=== PATIENT | female | born 1995 | race Caucasian/White ===

== ENCOUNTER 2021-06-20 16:10 | Observation (INO) | payer OTHER, SELFPAY ==
--- NOTE | 2021-06-20 14:05 | OBADM ---
This patient, Taylor Li, admitted to the OB room OB Post 117 for observation. Patient/family oriented to hospital policies and general routines including ID bracelet, bed and alarms, visiting hours, pain management, procedures, bathroom and other care routines, personal items, smoking policy, room service/diet, and visiting hours. Patient/Family are encouraged to report perceived risks to care and to ask questions if they do not understand what they are told or what they should do.
[2021-06-20 14:30] VITALS: BP 126/73; PULSE 74; BMI 29.4
[2021-06-20 14:45] VITALS: BP 124/82; PULSE 82
[2021-06-20 15:00] VITALS: BP 121/70; PULSE 75
[2021-06-20 15:15] VITALS: BP 112/70; PULSE 76
[2021-06-20 15:30] VITALS: BP 126/75; PULSE 87
[2021-06-20 15:45] VITALS: BP 120/70; PULSE 77
[2021-06-20] MEDS: TERBUTALINE SULFATE 1 MG/ML VIAL 0.25 MG SUB-Q (17:13)
[2021-06-20 17:41] LABS: Add Urine Microscopic? YES; Appearance Urine Clear (Clear); Bilirubin Urine Negative (Negative); Blood Urine Negative (Negative); Color Urine Colorless (Yellow); Glucose Urine UA Negative (Negative); Ketones Urine Trace mg/dL (Negative); Leukocyte Esterase Ur Negative LEU/UL (NEGATIVE); Nitrate Urine Negative (Negative); Protein Urine Negative (Negative); Squamous Epithelial Cell Urine Rare /hpf (Few); Urobilinogen Urine Negative mg/dL (<2.0); WBC Urine 0-3 /hpf (0-3)
[2021-06-20 18:22] LABS: Specific Grav Ur 1.003 (1.001-1.035)
--- NOTE | 2021-07-10 22:56 | PM.OBTRLD ---
OB - Triage/Final Diagnosis Visit Information Comments/Additional reasons for admission: I have assessed the risk for this patient, Taylor Li, and determined that she would benefit from observation care. Evaluation Laboratory results: Laboratory Tests 06/20/21 17:05 Urine Color Colorless Urine Appearance Clear Urine pH 6.0 Ur Specific [place] 1.003 Urine Protein Negative Urine Glucose (UA) Negative Urine Ketones Trace Ur Blood (Man) Negative Urine Nitrate Negative Urine Bilirubin Negative Urine Urobilinogen Negative Ur Leukocyte Esterase Negative Urine WBC 0-3 Ur Squamous Epith Cells Rare Final Diagnosis (1) Threatened labor, antepartum: Code(s): O47.00 - False labor before 37 completed weeks of gestation, unspecified trimester Status: Acute
== END 2021-06-20 18:45 | disposition home or self-care (01) ==
PROVIDERS: Admitting Provider Obstetrics & Gynecology; PCP Nurse Practitioner; Visit Provider Obstetrics & Gynecology
DX: O47.1 False labor at or after 37 completed weeks of gestation (principal); Z3A.34 34 weeks gestation of pregnancy
CPT/HCPCS: 81001; 87077; 87086; 87088; 96372; G0378; G0379; J3105

== ENCOUNTER 2021-06-27 07:27 | Inpatient (IN) | payer OTHER, SELFPAY ==
[2021-06-27] VITALS (55 sets, daily range): BP systolic 82–134; BP diastolic 48–95; PULSE 28–118; RESP 14–20; TEMP 36.8–37.7; O2SAT 95–100
--- NOTE | 2021-06-27 07:27 | LDADM ---
This patient, Taylor Li, was admitted to Labor/Delivery/Recovery 103 on 06/27/21 at 07:27. Plans for labor, pain management and were discussed with patient. Patient/family oriented to hospital policies and general routines including ID bracelet, bed and alarms, visiting hours, pain management, procedures, bathroom and other care routines, personal items, smoking policy, room service/diet and guest tray routines, infant security routines, and visiting hours. Patient/Family are encouraged to report perceived risks to care and to ask questions if they do not understand what they are told or what they should do. See OBIX for further documentation.
[2021-06-27] MEDS: LACTATED RINGERS 1,000 ML 125 ML IV CONT ×3 (09:21→19:25)
[2021-06-27] MEDS: OXYTOCIN 30 UNITS/NS 500 ML 30 UNITS/500 ML BAG 6 UNITS IV CONT (09:21)
[2021-06-27] MEDS: AMPICILLIN 2 GM/NS 100 ML 2 GM/100 ML BAG IVPB (09:21)
[2021-06-27 09:33] LABS: Basophils Percent Auto 0.3 % (0.2-1.2); Eosinophils Absolute Auto 0.1 K/mm3 (0-0.3); Eosinophils Percent Auto 0.6 % (0-4.4); Hematocrit 42.4 % (37.0-47.0); Hemoglobin 14.3 g/dL (12.0-15.0); Immature Granulocyte Absolute 0.09 K/mm3 (0.00-0.031); Lymphocytes Absolute Auto 1.93 K/mm3 (0.9-3.2); Lymphocytes Percent Auto 21.7 % (18.3-44.2); Mean Corpuscular HGB Conc 33.7 g/dl (32-36); Mean Corpuscular Hemoglobin 31.1 pg (26-34); Mean Corpuscular Volume 92.2 fl (80-100); Mean Platelet Volume 11.5 fl (7.4-10.4); Monocytes Absolute Auto 0.5 K/mm3 (0.1-0.6); Monocytes Percent Auto 5.9 % (2.6-8.5); Neutrophils Absolute Auto 6.3 K/mm3 (1.3-6.7); Neutrophils Percent Auto 70.5 % (45.5-73.1); Platelet Count Result 190 k/mm3 (150-375); Red Cell Distribution Width 13.1 % (11.5-14.5); White Blood Count 8.9 K/mm3 (4.5-10.0)
[2021-06-27] MEDS: BETAMETHASONE SOD PHOS/ACETATE 30 MG/5 ML VIAL 12 MG IM (09:52)
[2021-06-27] MEDS: AMPICILLIN 1 GM/NS 50 ML 1 GM/50 ML BAG IVPB ×2 (13:31→17:36)
--- NOTE | 2021-06-27 16:08 | PM.IMHP ---
H&P: HPI History of Present Illness Date/Time: 06/27/21 16:08 She is 35 weeks by LMP 10/23/20 with an EDC 07/30/21 consistent with 10 week ultrasound. Patient presented to L and D with complaints of leaking of fluid. She states she woke up this morning with urge to urinate and then had a gush clear fluid 0600. No fever or chills. She was confirmed positive ROM plus. PNC significant for history of polyhydramnios, the AF was within normal at her last ultrasound.+ GBS in urine. She did have cervical dilation 2 last week no change while being monitored on L and D. Chief Complaint: Leaking of fluid Review of Systems Review of Systems: All systems reviewed & are unremarkable except as noted in HPI and below Constitutional: Constitutional: Reports no additional constitutional complaints and Denies headache(s) Eyes: Eyes: Denies spots in vision ENT: Reports system reviewed and no additional complaints, except as documented and Denies headache(s) Cardiovascular: Cardiovascular: Denies chest pain and Denies dyspnea Respiratory: Respiratory: Denies dyspnea Gastrointestinal: Gastrointestinal: Reports no additional gastrointestinal complaints Genitourinary: Genitourinary: Reports amenorrhea Musculoskeletal: Musculoskeletal: Reports no additional musculoskeletal complaints Integumentary/Breasts: Skin/Breast: Denies breast mass and Denies rash Neurologic: Denies headache(s) Psychiatric: Psychiatric: Reports no additional psychiatric complaints [facility] Past Medical History Medical History Asthma Seasonal allergies Family History Family History Mother Diabetes mellitus Sibling Asthma Grandparent Hypertension Heart disease Cerebrovascular accident Social History Social History Smoking status: Never smoker Second hand tobacco smoke exposure: No Alcohol intake: never Substance use: never Spiritual care concerns: No Meds Home Medications and Allergies Home Medications Medication Instructions Recorded Confirmed Type docosahexaenoic acid 200 mg capsule mg PO 12/16/20 06/07/21 History amoxicillin 250 mg capsule 250 mg PO Q8H #21 cap 06/23/21 06/27/21 Rx PNV cmb#95-ferrous fumarate-FA 1 tablet PO DAILY 06/27/21 06/27/21 History [] Allergies Allergy/AdvReac Type Severity Reaction Status Date / Time No Known Allergies Allergy Verified 06/20/21 13:39 Vital Signs Vital Signs - 24 hr 06/27/21 09:00 06/27/21 09:30 06/27/21 10:01 Temperature 99.1 F Pulse Rate 96 95 Blood Pressure 134/88 134/89 06/27/21 10:32 06/27/21 10:49 06/27/21 11:01 Temperature 98.8 F Pulse Rate 112 H 82 Blood Pressure 93/60 L 115/85 06/27/21 12:00 06/27/21 12:30 06/27/21 13:01 Temperature Pulse Rate 79 91 78 Blood Pressure 119/73 115/58 L 102/67 06/27/21 13:31 06/27/21 14:00 06/27/21 14:30 Temperature Pulse Rate 85 74 84 Blood Pressure 92/69 L 112/78 131/86 06/27/21 15:01 06/27/21 15:31 06/27/21 16:01 Temperature Pulse Rate 84 99 92 Blood Pressure 105/89 95/62 L 124/64 Exam Const: General: no acute distress Eyes: General: appearance normal, both eyes and all related structures Resp: Effort & Inspection: normal respiratory effort Cardio: Rate: regular rate GI: Other: Gravid no fundal tenderness no right upper quadrant pain Skin: General skin exam: no rashes or lesions noted Neuro: Cognition (Neuro): normal cognition Extrem: General: normal to inspection Psych: Mental Status: mental status grossly normal H&P: Results Labs Labs: Short CBC 06/27/21 Range/Units 08:41 WBC 8.9 (4.5-10.0) K/mm3 Hgb 14.3 (12.0-15.0) g/dL Hct 42.4 (37.0-47.0) % Plt Count 190 (150-375) k/mm3 Assessment and Plan Assessment and plan (1) premature rupture of membranes:
--- NOTE | 2021-06-27 17:02 | P.PNAN_ITS ---
Anes - Eval Pre Procedure Procedure: labor epidural Date/Time: 06/27/21 17:02 Surgeon: norman Pre Op Diagnosis: Leaking Patient Data Age: 25 Gender: F Height: Weight: Last Vital Signs Temp 37.3 C 06/27/21 15:30 Pulse 89 06/27/21 16:31 BP 94/71 L 06/27/21 16:31 Allergies Allergy/AdvReac Type Severity Reaction Status Date / Time No Known Allergies Allergy Verified 06/20/21 13:39 Home Medications Medication Instructions Recorded Confirmed Type docosahexaenoic acid 200 mg capsule mg PO 12/16/20 06/07/21 History amoxicillin 250 mg capsule 250 mg PO Q8H #21 cap 06/23/21 06/27/21 Rx PNV cmb#95-ferrous fumarate-FA 1 tablet PO DAILY 06/27/21 06/27/21 History [] Laboratory Tests 06/27/21 06/27/21 06/27/21 08:41 08:41 08:41 WBC 8.9 K/mm3 K/mm3 (4.5-10.0) RBC 4.60 M/mm3 M/mm3 (4.2-5.4) Hgb 14.3 g/dL g/dL (12.0-15.0) Hct 42.4 % % (37.0-47.0) MCV 92.2 fl fl (80-100) MCH 31.1 pg pg (26-34) MCHC 33.7 g/dl g/dl (32-36) RDW 13.1 % % (11.5-14.5) Plt Count 190 k/mm3 k/mm3 (150-375) MPV 11.5 fl H fl (7.4-10.4) Immature Gran % (Auto) 1.0 % H % (0-0.5) Neut % (Auto) 70.5 % % (45.5-73.1) Lymph % (Auto) 21.7 % % (18.3-44.2) [place] % (Auto) 5.9 % % (2.6-8.5) Eos % (Auto) 0.6 % % (0-4.4) Baso % (Auto) 0.3 % % (0.2-1.2) Lymph # (Auto) 1.93 K/mm3 K/mm3 (0.9-3.2) [place] # (Auto) 0.5 K/mm3 K/mm3 (0.1-0.6) Eos # (Auto) 0.1 K/mm3 K/mm3 (0-0.3) Baso # (Auto) 0.0 K/mm3 K/mm3 (0.0-0.1) Abs Immat Gran (auto) 0.09 K/mm3 H K/mm3 (0.00-0.031) Absolute Neuts (auto) 6.3 K/mm3 K/mm3 (1.3-6.7) Absolute Nucleated RBC 0.0 K/mm3 K/mm3 (0.0-0.012) Nucleated RBC % 0.0 % % (0.0-0.2) RPR Pending Blood Type O Positive Antibody Screen Negative Patient hx anesthesia problems: none Family hx anesthesia problems: none Results Review: All pre-operative results and documents have been reviewed as part of the pre-operative evaluation. [facility] Past Medical History Medical History Asthma Seasonal allergies Family History Family History Mother Diabetes mellitus Sibling Asthma Grandparent Hypertension Heart disease Cerebrovascular accident Social History Social History Smoking status: Never smoker Second hand tobacco smoke exposure: No Alcohol intake: never Substance use: never Spiritual care concerns: No Exam Day of Procedure 06/27/21 17
--- NOTE | 2021-06-27 17:37 | P.PNOB_ITS ---
OB - PN: Subj Subjective Date/time seen: 06/27/21 17:37 FHT 130, Cat 2, intermittent episode of late decelerations, AROM forebag, large amount clear fluid and episode of tachysystole and late decel, improved with position change, pit D/C and O2. Attempted to place IUPC but it would not advance, heam slightly asynclitic, cx 3/80/-2, Continue to monitor. OB - PN: Obj Data Labs CBC & Chem 7: 06/27/21 08:41 Labs: Laboratory Results - last 24 hr 06/27/21 06/27/21 08:41 08:41 WBC 8.9 RBC 4.60 Hgb 14.3 Hct 42.4 MCV 92.2 MCH 31.1 MCHC 33.7 RDW 13.1 Plt Count 190 MPV 11.5 H Immature Gran % (Auto) 1.0 H Neut % (Auto) 70.5 Lymph % (Auto) 21.7 [place] % (Auto) 5.9 Eos % (Auto) 0.6 Baso % (Auto) 0.3 Lymph # (Auto) 1.93 [place] # (Auto) 0.5 Eos # (Auto) 0.1 Baso # (Auto) 0.0 Abs Immat Gran (auto) 0.09 H Absolute Neuts (auto) 6.3 Absolute Nucleated RBC 0.0 Nucleated RBC % 0.0 Blood Type O Positive Antibody Screen Negative OB - PN A/P Time Spent With Patient Time: Total time spent is greater than 50% in coordination of care (as alice carter) at patient's floor/unit and/or counseling patient:
[2021-06-27] MEDS: TERBUTALINE SULFATE 1 MG/ML VIAL (20:44)
--- NOTE | 2021-06-27 21:20 | WPDANESEPP ---
Anes - Eval Pre Procedure Procedure: primary c/s Date/Time: 06/27/21 21:20 Surgeon: norman Pre Op Diagnosis: Leaking Patient Data Age: 25 Gender: F Height: Weight: Last Vital Signs Temp 37.3 C 06/27/21 15:30 Pulse 118 H 06/27/21 20:41 BP 129/62 06/27/21 20:41 Pulse Ox 100 06/27/21 20:42 Allergies Allergy/AdvReac Type Severity Reaction Status Date / Time No Known Allergies Allergy Verified 06/20/21 13:39 Home Medications Medication Instructions Recorded Confirmed Type docosahexaenoic acid 200 mg capsule mg PO 12/16/20 06/07/21 History amoxicillin 250 mg capsule 250 mg PO Q8H #21 cap 06/23/21 06/27/21 Rx PNV cmb#95-ferrous fumarate-FA 1 tablet PO DAILY 06/27/21 06/27/21 History [] Laboratory Tests 06/27/21 06/27/21 06/27/21 08:41 08:41 08:41 WBC 8.9 K/mm3 K/mm3 (4.5-10.0) RBC 4.60 M/mm3 M/mm3 (4.2-5.4) Hgb 14.3 g/dL g/dL (12.0-15.0) Hct 42.4 % % (37.0-47.0) MCV 92.2 fl fl (80-100) MCH 31.1 pg pg (26-34) MCHC 33.7 g/dl g/dl (32-36) RDW 13.1 % % (11.5-14.5) Plt Count 190 k/mm3 k/mm3 (150-375) MPV 11.5 fl H fl (7.4-10.4) Immature Gran % (Auto) 1.0 % H % (0-0.5) Neut % (Auto) 70.5 % % (45.5-73.1) Lymph % (Auto) 21.7 % % (18.3-44.2) [place] % (Auto) 5.9 % % (2.6-8.5) Eos % (Auto) 0.6 % % (0-4.4) Baso % (Auto) 0.3 % % (0.2-1.2) Lymph # (Auto) 1.93 K/mm3 K/mm3 (0.9-3.2) [place] # (Auto) 0.5 K/mm3 K/mm3 (0.1-0.6) Eos # (Auto) 0.1 K/mm3 K/mm3 (0-0.3) Baso # (Auto) 0.0 K/mm3 K/mm3 (0.0-0.1) Abs Immat Gran (auto) 0.09 K/mm3 H K/mm3 (0.00-0.031) Absolute Neuts (auto) 6.3 K/mm3 K/mm3 (1.3-6.7) Absolute Nucleated RBC 0.0 K/mm3 K/mm3 (0.0-0.012) Nucleated RBC % 0.0 % % (0.0-0.2) RPR Pending Blood Type O Positive Antibody Screen Negative Patient hx anesthesia problems: none Family hx anesthesia problems: none Results Review: All pre-operative results and documents have been reviewed as part of the pre-operative evaluation. [facility] Past Medical History Medical History Asthma Seasonal allergies Family History Family History Mother Diabetes mellitus Sibling Asthma Grandparent Hypertension Heart disease Cerebrovascular accident Social History Social History Smoking status: Never smoker Second hand tobacco smoke exposure: No Alcohol intake: never Substance use: never Spiritual care concerns: No Exam Day of Procedure 06/27/21 21:20
--- NOTE | 2021-06-27 21:39 | PM.OP ---
Procedure Note - Brief Procedure Note - Brief Date of procedure: 06/27/21 Pre-op diagnosis: Leaking Post-op diagnosis: same Procedure performed: Primary low transverse ceserean section Anesthesia: epidural Surgeon: Luis Carlos Jacques MD Estimated blood loss (mL): 480 Drains: No Packing: No Pathology: yes (Placenta and cord) Complications: No immediate complications Condition: stable Disposition: floor
--- NOTE | 2021-06-27 23:37 | W.PM.PROC2 ---
Procedure Note - Detailed Date of Procedure 06/27/21 Pre-op Diagnosis Nonreassuring heart tracing premature rupture of membranes. Post-op Diagnosis same Procedure Performed Primary low transverse ceserean section Surgeon Luis Carlos Jacques MD Anesthesia epidural Indications Patient is a 25 y/o G1 at 35 1 weeks admitted on 06/27 for PPROM. She was started on IV ampicillin for prematurity and recent urine culture with GBS. She was also given rescue dose betamethasone and labor augmented with Pitocin. tracing during labor she had intermittent episode of late decels which were relieved with position change. Her Pitocin was stopped after having late repetitive decels. The tracing did improve. She did request epidural. After epidural placed her blood pressures were low and she was having late decelerationsd and a bradycardia episode. Cervix at that time was 4-5 cm. At that time due to the Cat 2 tracing remote from delivery she was recommended for ceserean section. She was informed of indication, and risk benefit of procedure and risk of persisting with labor and agreed to primary ceserean section. heart tones were 120-130 when she got to the OR. Findings Male infant, OP position, clear fluid. Normal uterus, fallopian tubes and ovaries. Description of Procedure After informed consent, risks and benefits of the procedure was discussed with the patient. The patient was taken to the operating room where she was placed in the dorsal lithotomy position with leftward tilt. The epidural anesthesia was dosed and found to be adequate, she was then prepped and draped in the usual sterile fashion. A Pfannenstiel skin incision was made with a scalpel and carried through to the underlying layer of fascia. The fascia was then nicked in the midline, extending bilaterally. The fascia was dissected off the rectus muscles bluntly and sharply, superiorly and inferiorly. The rectus muscles were in the midline, and peritoneum was identified and entered sharply.. The pelvic organs were visualized. The bladder blade was then inserted. The vesicouterine peritoneum was identified and entered sharply with Metzenbaum scissors and extended bilaterally and then the bladder flap was created digitally. The low transverse uterine incision was then made with the scalpel and extended with bilateral index fingers in a crescent-shaped fashion. The head was delivered and the rest of the infant was delivered. The cord was doubly clamped and cut. The was nonvigorous and was then handed off to the awaiting pediatric staff. The placenta was then delivered manually. The uterine cavity was sponge curretted. The uterus was then exteriorized. The uterine incision was then closed with 0 vicryl in a running locked fashion. Hemostasis noted. A second layer of 0 vicryl was used in an imbricating fashion. The uterus was then returned to the abdomen. The posterior cul de sac and bllateral gutters were cleared off all clots and debris. The uterine incision was noted to be hemostatic. Interceed placed on uterine incision and vertically on front of uterus. The peritoneum was approximated with 3.0 in a running fashion. The muscle bellies were inspected and noted to be hemostatic. The subfascial layer was noted to be hemostatic, and the fascia was closed with 0 Vicryl in a running fashion. The subcutaneous layer was then closed with 3-0 Vicryl in a subcutaneous fashion. The skin was closed with dissolveable fantasma. Skin dermabond applied at incision. All instruments, needle, and lap counts were correct x3. The patient was taken to the recovery room in stable condition. Estimated Blood Loss -485.0 Drains No Pathology yes (placenta and cord) Complications No immediate complications Condition stable Disposition floor
[2021-06-28 00:45] VITALS: BP 128/58; PULSE 86; RESP 18; TEMP 36.5; O2SAT 97
[2021-06-28] MEDS: DEXTROSE 5%/0.45% SOD CHL 1,000 ML 125 ML IV CONT (01:33)
[2021-06-28] MEDS: KETOROLAC 30 MG/ML VIAL (*BKC) IV PUSH (01:34)
[2021-06-28 04:30] VITALS: BP 93/65; PULSE 98; RESP 18; TEMP 36.1; O2SAT 96
[2021-06-28 05:44] LABS: Basophils Percent Auto 0.2 % (0.2-1.2); Hematocrit 35.8 % (37.0-47.0); Hemoglobin 11.8 g/dL (12.0-15.0); Immature Granulocyte Absolute 0.21 K/mm3 (0.00-0.031); Lymphocytes Absolute Auto 1.27 K/mm3 (0.9-3.2); Lymphocytes Percent Auto 5.9 % (18.3-44.2); Mean Corpuscular Hemoglobin 31.1 pg (26-34); Mean Corpuscular Volume 94.5 fl (80-100); Mean Platelet Volume 11.5 fl (7.4-10.4); Monocytes Absolute Auto 1.2 K/mm3 (0.1-0.6); Monocytes Percent Auto 5.7 % (2.6-8.5); Neutrophils Absolute Auto 18.7 K/mm3 (1.3-6.7); Neutrophils Percent Auto 87.2 % (45.5-73.1); Platelet Count Result 170 k/mm3 (150-375); Red Blood Count 3.79 M/mm3 (4.2-5.4); Red Cell Distribution Width 13.1 % (11.5-14.5); White Blood Count 21.4 K/mm3 (4.5-10.0)
[2021-06-28 06:02] LABS: Rapid Plasma Reagin Non-Reactive (NonReactive)
[2021-06-28 07:25] VITALS: BP 100/63; PULSE 78; RESP 16; TEMP 37; O2SAT 100
--- NOTE | 2021-06-28 08:00 | PC.NURSE ---
accompanied pt via wheelchair to first floor nsy to see baby.
--- NOTE | 2021-06-28 09:04 | WPDANLDPN2 ---
Anes-Prog Note L&D Date/Time: 06/28/21 09:04 Comfortable throughout: labor and section Neuraxial method: epidural Epidural/Spinal procedure site: clean & non-tender Neuro status: Neuro function grossly intact. Cardiovascular status: normal Respiratory status: normal Airway patency: baseline Mental status: baseline Post-Op hydration status: normal Vital Signs: Last Vital Signs Temp 98.6 F 06/28/21 07:25 Pulse 78 06/28/21 07:25 Resp 16 06/28/21 07:25 BP 100/63 06/28/21 07:25 Pulse Ox 100 06/28/21 07:25 Pain score (VAS): 05/30 I/O: Intake & Output 06/27/21 06/28/21 06/28/21 23:59 07:59 15:59 Intake Total 1999 999 Output Total 2074 Balance 1999 -107 Post-procedural complaints: none Patient feedback: Patient satisfied with anesthetic care.
--- NOTE | 2021-06-28 09:05 | WPDANLDNPN2 ---
Anes-Prog Note L&D-Neuraxial Date/Time: 06/28/21 09:05 Neuraxial medications: epidural PF morphine Opiod-related complaints: none Patient feedback: Patient satisfied with post-operative pain management.
[2021-06-28] MEDS: DOCUSATE SODIUM 100 MG CAPSULE PO ×2 (09:58→20:26)
[2021-06-28] MEDS: MULTIVIT/MIN/PREN/FOL AC/IRON TABLET 1 TAB PO (09:58)
[2021-06-28] MEDS: IBUPROFEN 600 MG TABLET PO ×2 (09:58→20:27)
[2021-06-28] MEDS: HYDROcodone/acetaminophen (*CRX) 5-325 MG TABLET 1 TAB PO ×3 (09:58→20:26)
[2021-06-28] MEDS: SIMETHICONE 80 MG TAB.CHEW PO (09:59)
[2021-06-28 11:47] VITALS: BP 119/77; PULSE 77; RESP 16; TEMP 36.7; O2SAT 100
--- NOTE | 2021-06-28 15:10 | PC.NURSE ---
Pt and left on therapeutic pass at 1510 to see baby.
--- NOTE | 2021-06-28 16:56 | P.PNOB_ITS ---
OB - PN: Subj Subjective Date/time seen: 06/28/21 0815 I talked to patient in nursery. She has adequate pain control. She just had catheter removed. Sat up in chair well. OB - PN: Obj Data Labs CBC & Chem 7: 06/28/21 04:37 Labs: Laboratory Results - last 24 hr 06/27/21 06/28/21 08:41 04:37 WBC 21.4 H RBC 3.79 L Hgb 11.8 L Hct 35.8 L MCV 94.5 MCH 31.1 MCHC 33.0 RDW 13.1 Plt Count 170 MPV 11.5 H Immature Gran % (Auto) 1.0 H Neut % (Auto) 87.2 H Lymph % (Auto) 5.9 L [place] % (Auto) 5.7 Eos % (Auto) 0.0 Baso % (Auto) 0.2 Lymph # (Auto) 1.27 [place] # (Auto) 1.2 H Eos # (Auto) 0.0 Baso # (Auto) 0.0 Abs Immat Gran (auto) 0.21 H Absolute Neuts (auto) 18.7 H Absolute Nucleated RBC 0.0 Nucleated RBC % 0.0 RPR Non-reactive OB - PN A/P Assessment and Plan (1) Status post section: Code(s): Z98.891 - History of uterine scar from previous surgery Status: Acute Assessment and Plan: POD1. Doing well. Will allow for a pass to see baby. Routine post c/s care. Time Spent With Patient Time: Total time spent is greater than 50% in coordination of care (as document ed) at patient's floor/unit and/or counseling patient: Exam Const: General: comfortable and no acute distress Resp: Effort & Inspection: normal respiratory effort Psych: Mental Status: mental status grossly normal Affect: normal affect
[2021-06-28 20:30] VITALS: BP 113/63; PULSE 83; RESP 18; TEMP 36.6; O2SAT 98
[2021-06-29] MEDS: HYDROcodone/acetaminophen (*CRX) 5-325 MG TABLET 1 TAB PO ×2 (03:40→09:18)
[2021-06-29] MEDS: IBUPROFEN 600 MG TABLET PO ×2 (03:41→09:18)
[2021-06-29 07:40] VITALS: BP 124/81; PULSE 77; RESP 16; TEMP 36.9; O2SAT 100
--- NOTE | 2021-06-29 09:00 | PC.NURSE ---
PT introductions made and plan of care discussed per post op c section, pain management, breast pumping, baby transferred, daily care activities and pending discharge to home. PT sole recipient of such instructions. no barriers to learning identified and pt received instructions per one to cary discussion, mom baby care guide and demonstrations for this shift. Pt verbalized understanding of such care.
[2021-06-29] MEDS: MULTIVIT/MIN/PREN/FOL AC/IRON TABLET 1 TAB PO (09:17)
[2021-06-29] MEDS: DOCUSATE SODIUM 100 MG CAPSULE PO (09:17)
[2021-06-29] MEDS: SIMETHICONE 80 MG TAB.CHEW PO (09:17)
[2021-06-29 09:18] VITALS: PULSE 77; RESP 16; O2SAT 100
[2021-06-29] MEDS: LANOLIN (LANSINOH) 7.5 GM CREAM 1 APPLIC TOPICAL (09:19)
--- NOTE | 2021-06-29 10:03 | P.PNOB_ITS ---
OB - PN: Subj Subjective Date/time seen: 06/29/21 10:03 Patient doing well this morning. Pain well controlled with medication. Denies any headache, chest pain, shortness of breath, nausea, or vomiting. Tolerating PO diet. Ambulating without difficulty. Voiding well. Passing flatus. Minimal lochia. OB - PN: Obj Data Labs CBC & Chem 7: 06/28/21 04:37 OB - PN A/P Assessment and Plan (1) Status post section: Code(s): Z98.891 - History of uterine scar from previous surgery Status: Acute Assessment and Plan: POD#2 doing well continue routine postoperative care encourage ambulation and use of IS pt requesting dc home today, which I agree with emergency precautions reviewed RTO in 1-2 weeks for postoperative visit Time Spent With Patient Time: Total time spent is greater than 50% in coordination of care (as alice carter) at patient's floor/unit and/or counseling patient: Exam Const: General: cooperative, healthy appearing, comfortable and no acute distress GI: Inspection: non-distended GI Palp: Yes Soft to palpation and No Tenderness to palpation present (GI) Other: inc c/d/i Extrem: Right lower extremity: edema (trace) Left lower extremity: edema (trace) Other: no calf tenderness Psych: Appearance: grossly normal Mental Status: mental status grossly normal
--- NOTE | 2021-06-29 10:06 | PM.OBDSVD ---
DS: Admitting Diagnosis Discharge Date 06/29/21 Admitting Diagnosis PPROM DS: Discharge Diagnosis Discharge Diagnosis (1) Status post section: Code(s): Z98.891 - History of uterine scar from previous surgery Status: Acute OB - DS: Summary OB Procedures : None OB Procedures Intrapartum: OB Procedures: : None Peripartum Data Procedures: Procedures Operation Date: 06/27/21 20:45 Actual Procedure Side Surgeon p Section Not Applicable Luis Carlos Jacques MD Time Spent with Patient Time attestation: Total time spent providing and/or coordinating discharge services: DS: Data Data Completed and Pending Pending studies at discharge: Pending at discharge 06/27/21 22:35 Surgical [PTH] Routine Discharge Plan Discharge Attending physician on discharge: Maryana Norris Discharging Clinician: Maryana Norris Anticipated Discharge Date/Time: 06/29/21 10:07 Patient Disposition: Home, Self-Care Activity: as tolerated and pelvic rest Diet: regular Discharge Instructions: Call office ([phone]) to schedule the following appointments: 1. Postoperative/wound check in 2 weeks. 2. visit in 4-6 weeks. You may take Ibuprofen 600mg every 6 hours as needed for pain. I have sent a prescription for a stronger pain medication, Stella, to your pharmacy. You may take this as prescribed for breakthrough pain (pain that is not controlled with Ibuprofen). No driving for at least two weeks. You also may not drive while taking narcotics. Pain medication may make you constipated. It may be helpful to take an [id number] stool softener, such as Colace and/or Senokot, along with the pain medication to help lessen constipation. Call office or go to ED for pain not controlled with medication, headache, chest pain, shortness of breath, fever, chills, persistent nausea or vomiting, severe abdominal pain, heavy vaginal bleeding >2 pads/hour, foul vaginal discharge or odor, any redness near incision, severe pain, pus or drainage from incision site, or problems with your breasts. Education: Mom and Baby Guide Given to: Mother Follow-Up: Call your delivering provider's office for an appointment to be seen in: 1 Week What to expect at your follow-up visit: Blood Pressure Check Call [phone] if you are unable to keep your appointment time. BREAST CARE: * Wear a snug supportive bra. * For engorgement discomfort: Breast Feeding: * Apply warm moist washcloths * Express milk as needed to relieve engorgement * Wear loose clothing * For sore nipples: * Identify correct latch-on * Apply warm moist washcloths before and after nursing * Air dry nipples after nursing * May apply Lansinoh cream to nipples ABDOMINAL INCISION: (if applicable) * Allow incision to air dry * Do NOT use lotions for powders on your incision * When showering, allow soap and water to run over the incision, but do not wash incision PERINEAL CARE: * Until bleeding stops, use your terrell bottle after urinating * Change your pad frequently throughout the day * No tub baths until seen by your physician - You may shower ACTIVITY: * Rest as much as possible. * Do not exercise or lift anything heavier than your baby (such as laundry or other children.) * Avoid stairs or driving as much as possible. * Do not put anything into the vagina. No douching, tampons, or sexual activity until seen by physician. NOTIFY PHYSICIAN IF YOU HAVE ANY QUESTIONS OR IF ANY OF THE FOLLOWING SYMPTOMS OCCUR: * If your incision becomes red, swollen, or more painful than what you have experienced in the hospital. * If your vaginal bleeding becomes foul smelling. * If your vaginal bleeding becomes more heavy than a period or if your bleeding changes from pink to bright red. However, you may pass an occasional walnu
--- NOTE | 2021-06-29 11:12 | PC.NURSE ---
1010 - 1030 Introductions were made and mother led the conversation with regards to her plan to pump and feed her baby that was transferred to [facility]. Reminded parents to use good handwashing to prevent infection. Reviewed frequency of pumping, production of human milk, transition of milk, signs of adequate intake and engorgement prevention/relief, other mother led questions were answered and when to call the infant care provider using the mom and baby guide. Reviewed community resources and outpatient services as listed in the mom and baby guide/[facility] website. Mother voiced understanding of information shared. Reported to primary RN.
--- NOTE | 2021-06-29 11:35 | PC.NURSE ---
PT discharged to home ambulatory accompanied by spouse to waiting car. Follow up appts confirmed
--- NOTE | 2021-06-29 11:46 | PC.NURSE ---
PT received discharge instructions per protocol and verbalized understanding of such care. Patient was given the opportunity to view the discharge video Mother & Baby Care, The First Two Weeks and to ask questions. Patient declined viewing the video and has been given the mother/baby guide for home reference.
== END 2021-06-29 11:35 | disposition home or self-care (01) | DRG 788 ==
LOC: ANHOB2 06-29 10:10 → ANHLDR 06-30 10:37 → ANHOB2 06-30 10:37
PROVIDERS: Admitting Provider Obstetrics & Gynecology; PCP Nurse Practitioner; Visit Provider Student in an Organized Health Care Education/Training Program
PROC: 10D00Z1 Extraction of Products of Conception, Low, Open Approach (ICD-10-PCS; CPT 59514; principal; 2021-06-27 20:45)
DX: O62.1 Secondary uterine inertia (principal); O40.3XX0 Polyhydramnios, third trimester, not applicable or unspecified; O99.824 Streptococcus B carrier state complicating childbirth; O42.913 Preterm premature rupture of membranes, unspecified as to length of time between rupture and onset of labor, third trimester; O76 Abnormality in fetal heart rate and rhythm complicating labor and delivery; Z3A.35 35 weeks gestation of pregnancy; Z37.0 Single live birth
CPT/HCPCS: 36415; 84112; 85025; 86592; 86850; 86900; 86901; 88307; A9270; J0131; J0290; J0702; J1885; J2274; J2590; J2795; J3105; J7120

== ENCOUNTER 2022-05-16 09:31 | Outpatient (CLI) | payer OTHER, SELFPAY ==
--- NOTE | ~2022-05-16 | US_ITS ---
Pelvic ultrasound. Clinical History: Second trimester , antepartum hemorrhage Technique: Realtime transabdominal and transvaginal scanning of the pelvis was performed. Findings: The uterus is anteverted, and contains an intrauterine gestation. [place]-rump length of 5.7 cm corresponds to an estimated gestational age of 12 weeks 2 days. heart rate is 163 bpm. Small subchorionic hemorrhage is present. Cervix is closed. The right ovary measures 2.3 x 1.9 x 3.0 cm. No significant right ovarian or adnexal mass is seen. The left ovary measures 2.2 x 1.8 x 2.8 cm. No significant left ovarian or adnexal mass is seen. There is no evidence of free fluid in the cul de sac. Impression: Live intrauterine gestation with estimated gestational age of 12 weeks 2 days. heart rate is 16 3 bpm. Small subchorionic hemorrhage. Reviewed, dictated and finalized at [facility]. AGE ENGINEER Impression: Live intrauterine gestation with estimated gestational age of 12 weeks 2 days. heart rate is 163 bpm. Small subchorionic hemorrhage.
== END 2022-05-16 09:32 | disposition home or self-care (01) ==
LOC: ANHIMG 09:31
PROVIDERS: PCP Nurse Practitioner; Visit Provider Obstetrics & Gynecology
DX: O36.8911 Maternal care for other specified fetal problems, first trimester, fetus 1 (principal); Z3A.12 12 weeks gestation of pregnancy
CPT/HCPCS: 76801

== ENCOUNTER 2022-05-25 12:49 | Outpatient (CLI) | payer OTHER, SELFPAY ==
--- NOTE | ~2022-05-25 | US_ITS ---
EXAMINATION: US OB <=14 wk fetus w TV DATE: 05/25/2022 13:48 INDICATION: Antepartum hemorrhage. TECHNIQUE: Real-time transabdominal pelvic ultrasound was performed. COMPARISON: Ultrasound 05/16/2022 FINDINGS: There is a single living fetus in vertex presentation. The placenta is anterior. No subchorionic hem atoma. heart rate is 169 beats per minute (bpm). The amniotic fluid volume is subjectively norm al. The following biometric data were obtained: [place] rump length (CRL: 7.2 cm; biparietal diameter (BPD): 2.4 cm; head circumference (HC): 9.1 cm; a bdominal circumference (AC): 6.7 cm; femur length (FL): 1.1 cm. These measurements are discordant with high HC/AC. Estimated weight is 75 g +/- 11 g, which correlates with the 19th percentile when 11/26/22 is use d as estimated date of delivery. As single measurements, these parameters are each equal to the following estimated gestational ages: BPD: 14 weeks 1 days. HC: 14 weeks 0 days. AC: 13 weeks 2 days. FL: 13 weeks 2 days. estimated gestational age based solely on measurements from this exam is 13 weeks 4 days +/- 1 weeks 0 days. IMPRESSION: 1. Single living fetus in vertex presentation. 2. Estimated weight is 75 g +/- 11 g, which correlates with the 19th percentile when 11/26/22 is used as estimated date of delivery. 3. Discordant biometrics with high HC/AC. Reviewed, dictated and finalized at location A. OND BROKER IMPRESSION: 1. Single living fetus in vertex presentation. 2. Estimated weight is 75 g +/- 11 g, which correlates with the 19th per centile when 11/26/22 is used as estimated date of delivery. 3. Discordant biometrics with high HC/AC.
== END 2022-05-25 12:50 | disposition home or self-care (01) ==
LOC: ANHIMG 12:50
PROVIDERS: PCP Nurse Practitioner; Visit Provider Obstetrics & Gynecology
DX: O46.90 Antepartum hemorrhage, unspecified, unspecified trimester (principal)
CPT/HCPCS: 76801; 76817

== ENCOUNTER 2022-09-19 10:33 | Outpatient (CLI) | payer OTHER, SELFPAY ==
--- NOTE | ~2022-09-19 | US_ITS ---
Duplex Sonography of the left extremity: Indication: Hypercoagulable state Findings: Sagittal and transverse B-mode images as well as color-flow imaging were performed on the l eft femoral and popliteal veins. B-mode examination was done without and with compression in the tra nsverse plane. There is good visualization of the common femoral, proximal profunda femoral, superfi cial femoral, greater saphenous, and popliteal veins. Normal flow was seen on color-flow imaging. No rmal compressibility was demonstrated. Visualized calf veins are also patent. Impression: No evidence of deep vein thrombosis involving the left lower extremity. Reviewed, dictated and finalized at location M. Impression: No evidence of deep vein thrombosis involving the left lower extremity.
== END 2022-09-19 10:34 | disposition home or self-care (01) ==
PROVIDERS: PCP Nurse Practitioner; Visit Provider Obstetrics & Gynecology
DX: M25.472 Effusion, left ankle (principal); M79.89 Other specified soft tissue disorders
CPT/HCPCS: 93971

== ENCOUNTER 2022-10-31 19:17 | Observation (INO) | payer OTHER, SELFPAY ==
[2022-10-31] MEDS: NIFEdipine 30 MG TAB.ER.24 PO (20:29)
[2022-10-31 21:05] VITALS: BP 129/87; PULSE 83
--- NOTE | 2022-11-22 16:21 | PM.OBTRLD ---
OB - Triage/Final Diagnosis Visit Information Comments/Additional reasons for admission: I have assessed the risk for this patient, Taylor Li, and determined that she would benefit from observation care. Final Diagnosis (1) False labor: Code(s): O47.9 - False labor, unspecified Status: Acute
== END 2022-10-31 21:48 | disposition home or self-care (01) ==
PROVIDERS: Admitting Provider Obstetrics & Gynecology; PCP Nurse Practitioner; Visit Provider Obstetrics & Gynecology
DX: O47.9 False labor, unspecified (principal); Z3A.00 Weeks of gestation of pregnancy not specified
CPT/HCPCS: A9270; G0378; G0379

== ENCOUNTER 2022-11-23 13:38 | Outpatient (CLI) | payer OTHER, SELFPAY ==
[2022-11-23 15:10] LABS: Hemoglobin 11.7 g/dL (12.0-15.0); Mean Corpuscular HGB Conc 32.5 g/dl (32-36); Mean Corpuscular Hemoglobin 28.9 pg (26-34); Mean Corpuscular Volume 88.9 fl (80-100); Mean Platelet Volume 11.3 fl (7.4-10.4); Platelet Count Result 164 k/mm3 (150-375); Red Blood Count 4.05 M/mm3 (4.2-5.4); Red Cell Distribution Width 14.1 % (11.5-14.5)
[2022-11-24 16:39] LABS: Rapid Plasma Reagin Non-Reactive (NonReactive)
== END 2022-11-23 13:39 | disposition home or self-care (01) ==
PROVIDERS: PCP Nurse Practitioner; Visit Provider Obstetrics & Gynecology
DX: Z01.812 Encounter for preprocedural laboratory examination (principal)
CPT/HCPCS: 36415; 85027; 86592; 86850; 86900; 86901

== ENCOUNTER 2022-11-24 05:33 | Inpatient (IN) | payer OTHER, SELFPAY ==
--- NOTE | 2022-11-23 17:21 | PM.IMHP ---
H&P: HPI History of Present Illness Date/Time: 11/23/22 17:21 Chief Complaint: Elective repeat section Narrative: Patient is a G3 P 1011 at 39 weeks admitted for elective repeat section. course significant for prior section. She declined trial of labor. course has been uncomplicated. Labs reviewed. Review of Systems Review of Systems: All systems reviewed & are unremarkable except as noted in HPI and below Constitutional: Constitutional: Reports no additional constitutional complaints and Denies headache(s) Eyes: Eyes: Denies spots in vision ENT: Reports system reviewed and no additional complaints, except as documented and Denies headache(s) Cardiovascular: Cardiovascular: Denies chest pain and Denies dyspnea Respiratory: Respiratory: Denies dyspnea Gastrointestinal: Gastrointestinal: Reports no additional gastrointestinal complaints Genitourinary: Genitourinary: Reports amenorrhea Musculoskeletal: Musculoskeletal: Reports no additional musculoskeletal complaints Integumentary/Breasts: Skin/Breast: Denies breast mass and Denies rash Neurologic: Denies headache(s) Psychiatric: Psychiatric: Reports no additional psychiatric complaints [facility] Past Medical History Medical History Asthma Seasonal allergies Family History Family History Mother Diabetes mellitus Sibling Asthma Grandparent Hypertension Heart disease Cerebrovascular accident Social History Social History Smoking status: Never smoker Second hand tobacco smoke exposure: No Alcohol intake: never Substance use: never Lack of Transportation: No Lack of Food: Never True Current Housing: I Have Housing Concerned About Future Housing: No Difficulty Paying Gas/Electric Bills: No Difficulty Paying for Meds: No Currently Unemployed: No Education: Associate Degree Difficulty w/ Childcare or Family Care: No Living arrangements: with family Occupation/Education: occupation Gender identity (if verbalized by the patient): Female Sexual Orientation (if Verbalized by the Patient): Straight or Heterosexual Spiritual care concerns: No Meds Home Medications and Allergies Home Medications Medication Instructions Recorded Confirmed Type vit no.95-ferrous 1 tablet PO DAILY 06/27/21 11/22/22 History fumarate 28 mg-folic acid 800 mcg tablet () Allergies Allergy/AdvReac Type Severity Reaction Status Date / Time No Known Allergies Allergy Verified 11/23/22 15:09 Exam Const: General: no acute distress Eyes: General: appearance normal, both eyes and all related structures Resp: Effort & Inspection: normal respiratory effort Cardio: Rate: regular rate GI: Other: Gravid no fundal tenderness no right upper quadrant pain, keloid Pfannenstiel scar Skin: General skin exam: no rashes or lesions noted Neuro: Cognition (Neuro): normal cognition Extrem: General: normal to inspection Psych: Mental Status: mental status grossly normal Assessment and Plan Assessment and plan (1) Previous section: Code(s): Z98.891 - History of uterine scar from previous surgery Status: Acute Assessment and Plan: Admit. Plan on repeat section with scar revision.
[2022-11-24] VITALS (43 sets, daily range): BP systolic 105–127; BP diastolic 46–87; PULSE 55–270; RESP 16–18; TEMP 36.4–37.2; O2SAT 56–100; BMI 30.2
[2022-11-24] MEDS: LACTATED RINGERS 1,000 ML 125 ML IV CONT ×2 (06:00→07:15)
--- NOTE | 2022-11-24 06:22 | LDADM ---
This patient, Taylor Li, was admitted to Labor/Delivery/Recovery 120 on 11/24/22 at 05:33. Plans for labor, pain management and were discussed with patient. Patient/family oriented to hospital policies and general routines including ID bracelet, bed and alarms, visiting hours, pain management, procedures, bathroom and other care routines, personal items, smoking policy, room service/diet and guest tray routines, infant security routines, and visiting hours. Patient/Family are encouraged to report perceived risks to care and to ask questions if they do not understand what they are told or what they should do. See OBIX for further documentation.
--- NOTE | 2022-11-24 07:08 | WPDANESEPPF ---
Anes - Initial Pre Proc Eval Procedure: Operation Date: 11/24/22 07:30 Proposed Procedures p Repeat Section - Luis Carlos Jacques MD Date/Time: 11/24/22 07:08 Surgeon: Luis Carlos Jacques MD Pre Op Diagnosis: C/S Patient Data Age: 27 Gender: F Height: 1.57 m Weight: 75 kg Last Vital Signs Temp 36.4 C L 11/24/22 05:49 Pulse 91 11/24/22 05:49 Resp 16 11/24/22 05:49 BP 127/84 11/24/22 05:49 O2 Del Method Room Air 11/24/22 06:20 Allergies Allergy/AdvReac Type Severity Reaction Status Date / Time No Known Allergies Allergy Verified 11/23/22 15:09 Home Medications Medication Instructions Recorded Confirmed Type vit no.95-ferrous 1 tablet PO DAILY 06/27/21 11/22/22 History fumarate 28 mg-folic acid 800 mcg tablet () Patient hx anesthesia problems: none Family hx anesthesia problems: none Results Review: All pre-operative results and documents have been reviewed as part of the pre-operative evaluation. [facility] Past Medical History Medical History Asthma Seasonal allergies Family History Family History Mother Diabetes mellitus Sibling Asthma Grandparent Hypertension Heart disease Cerebrovascular accident Social History Social History Smoking status: Never smoker Second hand tobacco smoke exposure: No Alcohol intake: never Substance use: never Lack of Transportation: No Lack of Food: Never True Current Housing: I Have Housing Concerned About Future Housing: No Difficulty Paying Gas/Electric Bills: No Difficulty Paying for Meds: No Currently Unemployed: No Education: Associate Degree Difficulty w/ Childcare or Family Care: No Living arrangements: with family Occupation/Education: occupation Gender identity (if verbalized by the patient): Female Sexual Orientation (if Verbalized by the Patient): Straight or Heterosexual Spiritual care concerns: No Anes - Eval Final PreProcedure Day of Procedure 11/24/22 07:08 Patient weight: obese Heart: regular rate and rhythm Lungs: clear to auscultation and normal air movement Airway: Mallampati scale class II Neurological: alert and oriented Last oral intake: >/= 8 hours ASA classification: II Emergent: no Anesthetic plan: proceed Anesthesia type and monitoring: regional spinal and standard monitoring Results Review: All pre-operative results and documents have been reviewed as part of the pre-operative evaluation. Informed Consent: The patient's anesthetic plan and its attendant risks and benefits were discussed with the patient/family/POA. Questions were solicited and answers provided to the satisfaction of the patient/family/POA.
--- NOTE | 2022-11-24 07:16 | WPDHPUPDATE1 ---
History and Physical Update Update Date/Time: 11/24/22 07:16 History and Physical has been reviewed, including an updated exam of the patient. There are NO changes in the patient's condition. Risks, benefits, and alternatives have been discussed and questions answered. Patient agrees to proceed with procedure.
[2022-11-24] MEDS: ceFAZolin 2 GM/D5W 50 ML 2 GM/50 ML BAG IVPB (07:25)
[2022-11-24] MEDS: KETOROLAC 30 MG/ML VIAL (*BKC) IV PUSH ×2 (08:15→12:51)
--- NOTE | 2022-11-24 08:57 | W.PM.PROC2 ---
Procedure Note - Detailed Date of Procedure 11/24/22 Pre-op Diagnosis Elective repeat section Scar revision Post-op Diagnosis Same Procedure Performed Repeat low transverse section Surgeon Luis Carlos Jacques MD Anesthesia Epidural Indications Elective repeat section Findings Normal uterus and fallopian tubes and ovaries. Female infant, 7#1oz, apgars 9,9 Loose nuchal cord and lose cord around leg manually reduced. Description of Procedure After informed consent, risks and benefits of the procedure was discussed with the patient. The patient was taken to the operating room where she was placed in the dorsal lithotomy position with leftward tilt. After the prior placed epidural anesthesia was found to be adequate, she was then prepped and draped in the usual sterile fashion. An elliptical incision was made around the keloid Pfannenstiel scar. The scar was excised with the bovie. The scarred fascia was incised with scalpel and was carried through to the underlying layer of fascia. The fascia was then nicked in the midline, extending bilaterally with davalos scissors. The fascia was very scarred to abdominal muscles and was dissected off the rectus muscles using cautery and scissors and blunt dissection superiorly and inferiorly. The rectus muscles were in the midline, and peritoneum was identified and entered bluntly. The pelvic organs were visualized. The bladder blade was then inserted. The vesicouterine peritoneum was identified and entered sharply with Metzenbaum scissors and extended bilaterally and then the bladder flap was created digitally. The low transverse uterine incision was then made with the scalpel and extended with bilateral index fingers in a crescent-shaped fashion. The amniotic sac was entered. Clear fluid noted. The head was delivered and the rest of the was delivered. There was a nuchal cord x 1 reduced manually and a cord around the leg was reduced manually. The nose and mouth suctioned. The cord was clamped twice and cut. The was then handed off to the awaiting pediatric staff. The placenta was then delivered manually. The uterine cavity was sponge curretted. The uterus was then exteriorized. The uterine incision was then closed with 0 vicryl in a running locked fashion. A figure of eight of 0 vicryl at the right of incision was used for hemostasis. Hemostasis noted. A second layer of 0 vicryl was used in an imbricating fashion for hemostasis. The posterior cul de sac was cleared of clot and irrigated. The uterus was then returned to the abdomen. A figue of eight 0 vicryl stitch was used for hemostasis at the center area of uterine incision. Hemostasis noted. Bilateral gutters were cleared off all clots and debris. The uterine incision was noted to be hemostatic. Interceed placed on uterine incision and vertically on front of uterus. The muscle bellies were inspected and noted to be hemostatic. The subfascial layer was noted to be hemostatic, and the fascia was closed with 0 Vicryl in a running fashion. The subcutaneous tissue was irrigated. The subcutaneous layer was then closed with 3-0 Vicryl in a subcutaneous fashion. The skin was closed with Ensorb. Skin dermabond applied at incision. All instruments, needle, and lap counts were correct x3. The patient was taken to the recovery room in stable condition. Estimated Blood Loss 390 Drains No Packing No Pathology None sent Complications No immediate complications Condition Stable Disposition Floor [facility] Billing Surgery - Charge Forward: Surgery Billing
[2022-11-24] MEDS: OXYTOCIN 30 UNITS/NS 500 ML 30 UNITS/500 ML BAG 125 UNITS IV CONT (09:23)
--- NOTE | 2022-11-24 11:10 | OBPPTRN ---
Patient transferred to post room # 283 via stretcher accompanied by spouse and in open crib. PT introductions made and plan of care discussed per one to one discussion, mom baby care guide and demonstrations this shift. PT and Support person both recipients of such instructions and no barriers to learning identified at this time. Oriented to unit, room, information board, rooming in, admission packet and security measures. Patient verbalizes understanding.
--- NOTE | 2022-11-24 11:10 | PC.NURSE ---
Infant arrived on unit via open crib accompanied by both parents and taken to room 283
[2022-11-24] MEDS: SIMETHICONE 80 MG TAB.CHEW PO ×2 (12:52→17:46)
[2022-11-24] MEDS: LANOLIN (LANSINOH) 7.5 GM CREAM 1 APPLIC TOPICAL (12:52)
[2022-11-24] MEDS: DEXTROSE 5%/0.45% SOD CHL 1,000 ML 125 ML IV CONT (13:30)
[2022-11-24] MEDS: POLYSACCHARIDE IRON COMPLEX 150 MG CAPSULE PO (17:47)
[2022-11-24] MEDS: IBUPROFEN 600 MG TABLET PO (17:47)
[2022-11-24] MEDS: DOCUSATE SODIUM 100 MG CAPSULE PO (17:47)
[2022-11-25 00:30] VITALS: BP 109/65; PULSE 77; RESP 16; TEMP 36.6; O2SAT 97
[2022-11-25] MEDS: IBUPROFEN 600 MG TABLET PO ×3 (03:59→17:30)
[2022-11-25 04:15] VITALS: BP 123/83; PULSE 77; RESP 16; TEMP 36.7; O2SAT 100
[2022-11-25 04:31] LABS: Basophils Absolute Auto 0.1 K/mm3 (0.0-0.1); Basophils Percent Auto 0.5 % (0.2-1.2); Eosinophils Absolute Auto 0.2 K/mm3 (0-0.3); Eosinophils Percent Auto 1.6 % (0-4.4); Hematocrit 33.7 % (37.0-47.0); Hemoglobin 11.1 g/dL (12.0-15.0); Immature Granulocyte Absolute 0.07 K/mm3 (0.00-0.031); Immature Granulocyte Percent A 0.6 % (0-0.5); Lymphocytes Absolute Auto 1.96 K/mm3 (0.9-3.2); Lymphocytes Percent Auto 17.9 % (18.3-44.2); Mean Corpuscular HGB Conc 32.9 g/dl (32-36); Mean Corpuscular Hemoglobin 29.4 pg (26-34); Mean Corpuscular Volume 89.2 fl (80-100); Mean Platelet Volume 11.3 fl (7.4-10.4); Monocytes Absolute Auto 0.6 K/mm3 (0.1-0.6); Monocytes Percent Auto 5.9 % (2.6-8.5); Neutrophils Percent Auto 73.5 % (45.5-73.1); Platelet Count Result 159 k/mm3 (150-375); Red Blood Count 3.78 M/mm3 (4.2-5.4); Red Cell Distribution Width 14.4 % (11.5-14.5); White Blood Count 10.9 K/mm3 (4.5-10.0)
[2022-11-25 08:00] VITALS: BP 125/80; PULSE 80; RESP 16; TEMP 36.7; O2SAT 100
--- NOTE | 2022-11-25 09:32 | WPDANLDNPN2 ---
Anes-Prog Note L&D-Neuraxial Date/Time: 11/25/22 09:32 Neuraxial medications: intrathecal PF morphine Opiod-related complaints: none Patient feedback: Patient satisfied with post-operative pain management.
--- NOTE | 2022-11-25 09:33 | WPDANLDPN2 ---
Anes-Prog Note L&D Date/Time: 11/25/22 09:33 Comfortable throughout: section Neuraxial method: spinal Epidural/Spinal procedure site: clean & non-tender Neuro status: Neuro function grossly intact. Cardiovascular status: normal Respiratory status: normal Airway patency: baseline Mental status: baseline Post-Op hydration status: normal Vital Signs: Last Vital Signs Temp 36.7 C 11/25/22 04:15 Pulse 77 11/25/22 04:15 Resp 16 11/25/22 04:15 BP 123/83 11/25/22 04:15 Pulse Ox 100 11/25/22 04:15 O2 Del Method Room Air 11/24/22 16:30 Pain score (VAS): 1 I/O: Intake & Output 11/24/22 11/25/22 11/25/22 23:59 07:59 15:59 Intake Total 1720 500 Output Total 2600 2400 Balance -880 -1900 Post-procedural complaints: none Patient feedback: Patient satisfied with anesthetic care.
[2022-11-25] MEDS: DOCUSATE SODIUM 100 MG CAPSULE PO ×2 (11:20→17:30)
[2022-11-25] MEDS: MULTIVIT/MIN/PREN/FOL AC/IRON TABLET 1 TAB PO (11:20)
[2022-11-25] MEDS: HYDROcodone/acetaminophen (*CRX) 5-325 MG TABLET 1 TAB PO ×2 (11:21→17:31)
--- NOTE | 2022-11-25 11:38 | PM.OBDSVD ---
DS: Admitting Diagnosis Discharge Date November 26, 2022 Admitting Diagnosis Elective repeat section DS: Discharge Diagnosis Discharge Diagnosis (1) Status post repeat low transverse section: Code(s): Z98.891 - History of uterine scar from previous surgery Status: Acute Assessment and Plan: elective repeat section OB - DS: Summary Hospital Course Hospital Course: she was admitted for elective repeat section. She had an uncomplicated repeat section. She did well . She had positive flatus was tolerating regular diet and was ambulating well. Baby was doing well. She was discharged home on post up day 2. She OB Procedures : Ultrasound OB Procedures Intrapartum: OB Procedures: : None Peripartum Data Delivery Method: Section Procedures: Procedures Operation Date: 11/24/22 07:30 Actual Procedure Side Surgeon p Repeat Section Bilateral Luis Carlos Jacques MD complications: none Status at Discharge Functional status at discharge: independent ambulation Time Spent with Patient Time attestation: Total time spent providing and/or coordinating discharge services: Exam Const: General: cooperative Orientation/consciousness: oriented to person, oriented to place and oriented to time HENMT: Face/Nose/Sinus: Normal external nose present Eyes: General: appearance normal, both eyes and all related structures Resp: Effort & Inspection: normal respiratory effort GI: Inspection: normal to inspection Other: Incision healing well. Skin: General skin exam: normal color Neuro: General: oriented to person, oriented to place and oriented to time Extrem: General: normal to inspection and no calf tenderness Psych: Appearance: grossly normal Mental Status: mental status grossly normal DS: Data Data Completed and Pending Labs on day of discharge: Labs from last 24 hours 11/25/22 04:01 WBC 10.9 H RBC 3.78 L Hgb 11.1 L Hct 33.7 L MCV 89.2 MCH 29.4 MCHC 32.9 RDW 14.4 Plt Count 159 MPV 11.3 H Immature Gran % (Auto) 0.6 H Neut % (Auto) 73.5 H Lymph % (Auto) 17.9 L [place] % (Auto) 5.9 Eos % (Auto) 1.6 Baso % (Auto) 0.5 Lymph # (Auto) 1.96 [place] # (Auto) 0.6 Eos # (Auto) 0.2 Baso # (Auto) 0.1 Abs Immat Gran (auto) 0.07 H Absolute Neuts (auto) 8.0 H Absolute Nucleated RBC 0.0 Nucleated RBC % 0.0 Discharge Plan Discharge Attending physician on discharge: Luis Carlos Jacques Consulting providers: Tony Starks; Olegario Solano Discharging Clinician: Bibiana Garcia Patient Disposition: Home, Self-Care Activity: may shower, no driving, follow weight bearing status and pelvic rest Diet: regular Discharge Instructions: Education: Mom and Baby Guide Given to: Mother Follow-Up: Call your delivering provider's office for an appointment to be seen in: 2 Weeks Mom and baby should come to the [facility] for the follow-up appointment. Appointment Date/Time: Sunday, November 27, 2022 at 9:00 a.m. What to expect at your follow-up visit: Blood Pressure Check Physical Assessment Call [phone] if you are unable to keep your appointment time. BREAST CARE: * Wear a snug supportive bra. * For engorgement discomfort: Breast Feeding: * Apply warm moist washcloths * Express milk as needed to relieve engorgement * Wear loose clothing * For sore nipples: * Identify correct latch-on * Apply warm moist washcloths before and after nursing * Air dry nipples after nursing * May apply Lansinoh cream to nipples ABDOMINAL INCISION: (if applicable) * Allow incision to air dry * Do NOT use lotions for powders on your incision * When showering, allow soap and water to run over the incision, but do not wash incision EPISIOTOMY/PERIN
--- NOTE | 2022-11-25 11:45 | P.PNOB_ITS ---
OB - PN: Subj Subjective Date/time seen: 11/25/22 11:45 Interval history: She states she has adequate pain control. She has ambulated no problems no leg pain baby is doing well she is . She is tolerating regular food no emesis or nausea. Positive flatus. Lochia is decreased. OB - PN: Obj Data Labs 11/25/22 04:01 Labs: Laboratory Results - last 24 hr 11/25/22 04:01 WBC 10.9 H RBC 3.78 L Hgb 11.1 L Hct 33.7 L MCV 89.2 MCH 29.4 MCHC 32.9 RDW 14.4 Plt Count 159 MPV 11.3 H Immature Gran % (Auto) 0.6 H Neut % (Auto) 73.5 H Lymph % (Auto) 17.9 L [place] % (Auto) 5.9 Eos % (Auto) 1.6 Baso % (Auto) 0.5 Lymph # (Auto) 1.96 [place] # (Auto) 0.6 Eos # (Auto) 0.2 Baso # (Auto) 0.1 Abs Immat Gran (auto) 0.07 H Absolute Neuts (auto) 8.0 H Absolute Nucleated RBC 0.0 Nucleated RBC % 0.0 OB - PN A/P Assessment and Plan (1) Status post repeat low transverse section: Code(s): Z98.891 - History of uterine scar from previous surgery Status: Acute Assessment and Plan: Postop day 1 status post repeat doing well. Continue routine post op care. Anticipate discharge tomorrow. Time Spent With Patient Time: Total time spent is greater than 50% in coordination of care (as documented) at patient's floor/unit and/or counseling patient: Exam Const: General: comfortable and no acute distress Resp: Effort & Inspection: normal respiratory effort GI: Other: Dressing removed incision intact no drainage uterus fundus firm at umbilicus appropriate tender Extrem: General: normal to inspection and no calf tenderness Psych: Mental Status: mental status grossly normal Affect: normal affect
[2022-11-25 20:25] VITALS: BP 121/80; PULSE 76; RESP 16; TEMP 36.9; O2SAT 99
[2022-11-26] MEDS: HYDROcodone/acetaminophen (*CRX) 5-325 MG TABLET 1 TAB PO ×3 (01:33→08:30)
[2022-11-26] MEDS: IBUPROFEN 600 MG TABLET PO ×2 (01:33→08:30)
--- NOTE | 2022-11-26 06:19 | PC.NURSE ---
11/25/2022 at 2200 Patient viewed the discharge video Mother & Baby Care, The First Two Weeks . Patient was given the opportunity and encouraged to ask questions. Patient verbalized understanding of information shared and has been given the mother/baby guide for home reference.
[2022-11-26 08:00] VITALS: BP 125/89; PULSE 85; RESP 16; TEMP 37.1; O2SAT 98
--- NOTE | 2022-11-26 08:11 | PM.OBPNVD ---
OB - PN: Subj Subjective Date/time seen: 11/26/22 08:11 Interval history: Patient comments: no complaints and pain well controlled baby status: doing well feeding status: exclusively breast feeding OB - PN: Obj Data Labs 11/25/22 04:01 OB - PN A/P Plan day: 2 Plan: routine care and discharge home Time Spent With Patient Time: Total time spent is greater than 50% in coordination of care (as documented) at patient's floor/unit and/or counseling patient: Exam Narrative: inc c/d/i : Bimanual exam- vagina & uterus: other (Uterus firm, nt @U)
[2022-11-26] MEDS: DOCUSATE SODIUM 100 MG CAPSULE PO (08:32)
[2022-11-26] MEDS: MULTIVIT/MIN/PREN/FOL AC/IRON TABLET 1 TAB PO (08:32)
[2022-11-27 09:17] VITALS: BP 121/82; PULSE 81; RESP 18; TEMP 37; O2SAT 100
== END 2022-11-26 11:11 | disposition home or self-care (01) | DRG 788 ==
LOC: ANHOB2 11-26 10:32 → ANHLDR 11-28 09:59 → ANHOB2 11-28 09:59
PROVIDERS: Admitting Provider Obstetrics & Gynecology; PCP Nurse Practitioner; Visit Provider Obstetrics & Gynecology Gynecology
PROC: 10D00Z1 Extraction of Products of Conception, Low, Open Approach (ICD-10-PCS; CPT 59514; principal; 2022-11-24 07:30)
DX: O34.219 Maternal care for unspecified type scar from previous cesarean delivery (principal); O69.81X0 Labor and delivery complicated by cord around neck, without compression, not applicable or unspecified; Z3A.39 39 weeks gestation of pregnancy; Z37.0 Single live birth
CPT/HCPCS: 36415; 85025; 85027; 86592; 86850; 86900; 86901; A9270; J0690; J1885; J2274; J2371; J2405; J2590; J7120